=== PATIENT | female | born 1970 | race Caucasian/White ===

== ENCOUNTER → 2021-08-29 | Outpatient (CLI) | payer OTHER ==
[~2021-08-29] VITALS: Ht 165.1 cm; Wt 73.5 kg
[~2021-08-29] MED LIST: DOSS PO; GLUCOPHAGE 500500 MG PO; HYDROCODON-ACE1 EAC6 PO; IBUPROFEN600 MG PO; IMITREX4 MG/0.51 SQ; PERCOCET 5-3251 EACH PO; ZOFRAN4 MG PO
== END ==
LOC: EROP 10:35
DX: U07.1 COVID-19 (principal); Z23 Encounter for immunization; J98.4 Other disorders of lung; E11.9 Type 2 diabetes mellitus without complications
CPT/HCPCS: M0247; Q0247